=== PATIENT | male | born 1990 | race Caucasian/White ===

== ENCOUNTER 2016-10-02 16:59 | Emergency (ER) | payer SELFPAY ==
[~2016-10-02] VITALS: Ht 170.2 cm; Wt 88.0 kg
[2016-10-02] MEDS ORDERED: IBUP-1022 PO (17:04)
[2016-10-02 18:26] VITALS: BP 137/83
--- NOTE | 2016-10-03 07:49 | REP ---
Right ankle four views: There is soft tissue edema laterally. Mineralization and joint spaces are normal. The mortise is symmetric. There is no fracture or dislocation. Impression: Soft tissue edema laterally, otherwise negative right ankle. Signed by Aj Crabtree MD 10/03/2016 07:40 A
== END 2016-10-02 18:37 | disposition home or self-care (01) ==
LOC: M ED 16:59
DX: S82.54XA Nondisplaced fracture of medial malleolus of right tibia, initial encounter for closed fracture (principal); Z72.0 Tobacco use; W18.31XA Fall on same level due to stepping on an object, initial encounter; Y92.89 Other specified places as the place of occurrence of the external cause; Y93.01 Activity, walking, marching and hiking; Y99.1 Military activity